=== PATIENT | female | born 1990 | race Caucasian/White ===

== ENCOUNTER 2019-12-25 14:40 | Emergency (ER) | payer OTHER ==
[~2019-12-25] VITALS: Ht 157.5 cm; Wt 73.2 kg
[2019-12-25 16:02] LABS: BASO # 0.1 x10^3/uL (0.0-0.2); BASO % 1 % (0-3); EOS # 0.5 x10^3/uL (0.0-0.7); EOS % 6 % (0-3); HEMATOCRIT 42.2 % (36.0-47.0); HEMOGLOBIN 14.5 g/dL (12.0-15.5); LYMPH # 2.4 x10^3/uL (1.0-4.8); LYMPH % 29 % (24-48); MEAN CORPUSCULAR HEMOGLOBIN 32 pg (25-35); MEAN CORPUSCULAR HGB CONC 35 g/dL (31-37); MEAN CORPUSCULAR VOLUME 94 fL (79-100); MONO # 0.6 x10^3/uL (0.0-1.1); MONO % 7 % (0-9); NEUT # 4.8 x10^3uL (1.8-7.7); NEUT % 57 % (31-73); PLATELET COUNT 282 x10^3/uL (140-400); RED CELL DISTRIBUTION WIDTH 12.8 % (11.5-14.5); WHITE BLOOD COUNT 8.3 x10^3/uL (4.0-11.0)
[2019-12-25 16:06] LABS: CALCIUM 9.3 mg/dL (8.5-10.1); CREATININE 0.8 mg/dL (0.6-1.0); GFR 85.4; POTASSIUM 3.7 mmol/L (3.5-5.1)
[2019-12-25 16:12] LABS: ALBUMIN 4.5 g/dL (3.4-5.0); ALBUMIN/GLOBULIN RATIO 1.3 (1.0-1.7); TOTAL BILIRUBIN 0.6 mg/dL (0.2-1.0)
[2019-12-25 16:25] LABS: BILIRUBIN,URINE NEG (NEG); CLARITY,URINE HAZY; COLOR,URINE YELLOW; GLUCOSE,URINE NEG (NEG)
[2019-12-25 16:26] LABS: BACTERIA,URINE FEW /HPF (0-FEW); NITRITE,URINE NEG (NEG); SQUAMOUS EPITHELIAL CELL,UR MANY /LPF; UROBILINOGEN,URINE 0.2 mg/dL (0.2 mg/dL)
--- NOTE | 2019-12-25 16:29 | RAD ---
INDICATION: Reason: right pelvic pain / Spl. Instructions: / History: COMPARISON: None. TECHNIQUE: Grayscale and color ultrasound images uterus and adnexa. Transabdominal and transvaginal images obtained. Transvaginal images were needed to better visualize structures that were limited on transabdominal imaging. FINDINGS: Uterus: 92 x 66 x 43 mm. Endometrial Stripe: 13 mm. Right Ovary: 48 x 41 x 23 mm. Left Ovary: 36 x 35 x 19 mm. Vascular flow identified to bilateral ovaries. Hypoechoic lesion of the right ovary measuring 22 x 11 mm. Adjacent to a portion of the uterus there is some hypoechoic material seen within the pelvis IMPRESSION: * Vascular flow seen to the bilateral ovaries with a hypoechoic lesion of the right ovary. This can be seen with causes such as hemorrhagic cyst with another possible cause including endometrioma. * Hypoechoic material seen within the pelvis. Difficult to tell if this is secondary to some loops of bowel within the area or if it is secondary to some complex fluid. Electronically signed by: Lee Capellan MD (12/25/2019 4:25 PM) [id number]
[2019-12-25 17:11] VITALS: BP 107/66
[2019-12-25] MEDS ORDERED: NITR100C62 PO (17:19)
--- NOTE | 2019-12-25 17:19 | PHYS DOC ---
Past History Past Medical History: UTI Past Surgical History: Appendectomy, Other Additional Past Surgical Histo: D&C; ABD CYST Alcohol Use: Occasionally Adult General Chief Complaint Chief Complaint: ABDOMINAL PAIN HPI HPI Patient is a 29-year-old female patient presenting to the ED today complaining of 5 out of 10 sharp intermittent right lower quadrant abdominal pain that began 1 week ago. Patient reports history of appendectomy. Denies any nausea, vo miting. Denies any fever. She states her last menstrual cycle was October 07, 2019 but she is done multiple tests which have been negative. States the pain is worse when she sits up. Review of Systems Review of Systems Constitutional: Denies fever or chills [] Eyes: Denies change in visual acuity, redness, or eye pain [] HENT: Denies nasal congestion or sore throat [] Respiratory: Denies cough or shortness of breath [] Cardiovascular: No additional information not addressed in HPI [] GI: Reports right lower quadrant abdominal pain, denies nausea, vomiting, bloody stools or diarrhea [] : Denies dysuria or hematuria [] Musculoskeletal: Denies back pain or joint pain [] Integument: Denies rash or skin lesions [] Neurologic: Denies headache, focal weakness or sensory changes [] All other systems were reviewed and found to be within normal limits, except as documented in this note. Allergies Allergies Allergies Coded Allergies Type Severity Reaction Last Updated Verified amoxicillin Allergy Unknown 12/25/19 Yes cefdinir Allergy Unknown 12/25/19 Yes Physical Exam Physical Exam Constitutional: Well developed, well nourished, no acute distress, non-toxic appearance. [] HENT: Normocephalic, atraumatic, bilateral external ears normal, oropharynx m oist, no oral exudates, nose normal. [] Eyes: PERRLA, EOMI, conjunctiva normal, no discharge. [] Neck: Normal range of motion, no tenderness, supple, no stridor. [] Cardiovascular:Heart rate regular rhythm, no murmur [] Lungs & Thorax: Bilateral breath sounds clear to auscultation [] Abdomen: Bowel sounds normal, soft, mild tenderness in the right lower quadrant, no right upper quadrant tenderness, no masses, no pulsatile masses. [] Pelvic exam External pelvic appears normal, cervix is visualized, closed, no CMT, trace amount of white discharge in the vaginal vault, mild right adnexal tenderness, no left adnexal tenderness. Skin: Warm, dry, no erythema, no rash. [] Back: No tenderness, no CVA tenderness. [] Extremities: No tenderness, no cyanosis, no clubbing, ROM intact, no edema. [] Neurologic: Alert and oriented X 3, normal motor function, normal sensory function, no focal deficits noted. [] Psychologic: Affect normal, judgement normal, mood normal. [] Current Patient Data Vital Signs Vital Signs Date Time Temp Pulse Resp B/P (MAP) Pulse Ox O2 Delivery O2 Flow Rate FiO2 12/25/19 17:11 77 18 107/66 (80) 99 Room Air 12/25/19 14:59 98.7 Lab Results Laboratory Tests Test 12/25/19 15:10 12/25/19 15:25 12/25/19 15:46 White Blood Count 8.3 x10^3/uL (4.0-11.0) Red Blood Count 4.50 x10^6/uL (3.50-5.40) Hemoglobin 14.5 g/dL (12.0-15.5) Hematocrit 42.2 % (36.0-47.0) Mean Corpuscular Volume 94 fL (79-100) Mean Corpuscular Hemoglobin 32 pg (25-35) Mean Corpuscular Hemoglobin Concent 35 g/dL (31-37) Red Cell Distribution Width 12.8 % (11.5-14.5) Platelet Count 282 x10^3/uL (140-400) Neutrophils (%) (Auto) 57 % (31-73) Lymphocytes (%) (Auto) 29 % (24-48) Monocytes (%) (Auto) 7 % (0-9) Eosinophils (%) (Auto) 6 % (0-3) H Basophils (%) (Auto) 1 % (0-3) Neutrophils # (Auto) 4.8 x10^3uL (1.8-7.7) Lymphocytes # (Auto) 2.4 x10^3/uL (1.0-4.8) Monocytes # (Auto) 0.6 x10^3/uL (0.0-1.1) Eosinophils # (Auto) 0.5 x10^3/uL (0.0-0.7) Basophils # (Auto) 0.1 x10^3/uL (0.0-0.2) Sodium Level 138 mmol/L (136-145) Potassium Level 3.7 mmol/L (3.5-5.1) Chloride Level 103 mmol/L (98-107) Carbon Dioxide Level 25 mmol/L (21-32) Anion Gap 10 (6-14) Blood Urea Nitrogen 8 mg/dL (7-20) Creatinine 0.8 mg/dL (0.6-1.0) Estimated GFR (Cockcroft-Gault) 85.4 BUN/Creatinine Ratio 10 (6-20) Glucose Level 92 mg/dL (70-99) Calcium Level 9.3 mg/dL (8.5-10.1) Total Bilirubin 0.6 mg/dL (0.2-1.0) Aspartate Amino Transferase (AST) 20 U/L (15-37) Alanine Aminotransferase (ALT) 32 U/L (14-59) Alkaline Phosphatase 67 U/L (46-116) Total Protein 8.0 g/dL (6.4-8.2) Albumin 4.5 g/dL (3.4-5.0) Albumin/Globulin Ratio 1.3 (1.0-1.7) Urine Collection Type Unknown Urine Color Yellow Urine Clarity Hazy Urine pH 7.0 Urine Specific [place] 1.015 Urine Protein Neg (NEG-TRACE) Urine Glucose (UA) Neg mg/dL (NEG) Urine Ketones (Stick) Neg mg/dL (NEG) Urine Blood Neg (NEG) Urine Nitrite Neg (NEG) Urine Bilirubin Neg (NEG) Urine Urobilinogen Dipstick 0.2 mg/dL (0.2 mg/dL) Urine Leukocyte Esterase Mod (NEG) Urine RBC 1-2 /HPF (0-2) Urine WBC 11-20 /HPF (0-4) Urine Squamous Epithelial Cells Many /LPF Urine Bacteria Few /HPF (0-FEW) POC Urine HCG, Qualitative hcg negative (Negative) Microbiology 12/25/19 Wet Prep - Final, Complete EKG EKG [] Radiology/Procedures Radiology/Procedures []PROCEDURE: US PELVIS W/TV INDICATION: Reason: right pelvic pain / Spl. Instructions: / History: COMPARISON: None. TECHNIQUE: Grayscale and color ultrasound images uterus and adnexa. Transabdominal and transvaginal images obtained. Transvaginal images were needed to better visualize structures that were limited on transabdominal imaging. FINDINGS: Uterus: 92 x 66 x 43 mm. Endometrial Stripe: 13 mm. Right Ovary: 48 x 41 x 23 mm. Left Ovary: 36 x 35 x 19 mm. Vascular flow identified to bilateral ovaries. Hypoechoic lesion of the right ovary measuring 22 x 11 mm. Adjacent to a portion of the uterus there is some hypoechoic material seen within the pelvis IMPRESSION: * Vascular flow seen to the bilateral ovaries with a hypoechoic lesion of the right ovary. This can be seen with causes such as hemorrhagic cyst with another possible cause including endometrioma. * Hypoechoic material seen within the pelvis. Difficult to tell if this is secondary to some loops of bowel within the area or if it is secondary to some complex fluid. Electronically signed by: Elinor Capellan MD (12/25/2019 4:25 PM) [id number] DICTATED AND SIGNED BY: ELINOR CAPELLAN MD DATE: 12/25/19 1625 CC: [facility]; SABINE SAINZ APRN; PCP,NO ~ Heart Score Risk Factors: Risk Factors: DM, Current or recent (<one month) smoker, HTN, HLP, family history of CAD, obesity. Risk Scores: Risk Factors: DM, Current or recent (<one month) smoker, HTN, HLP, family history of CAD, obesity. Course & Med Decision Making Course & Med Decision Making Pertinent Labs and Imaging studies reviewed. (See chart for details) This is a 29-year-old female patient presented to the ED today complaining of right lower quadrant abdominal pain that began a week ago. Negative urine hCG, CBC CMP with no acute findings. Positive for UTI, discharged on Macrobid. Wet prep is negative. Pelvic ultrasound noted for possible right hemorrhagic cyst. Discharged on ibuprofen and instructed to apply a heating pad to her lower abdomen. Recommended following up with an [employer] AL[employer] REPAIRER for her menstruation. Dragon Disclaimer Dragon Disclaimer This electronic medical record was generated, in whole or in part, using a voice recognition dictation system. Departure Departure: Impression: Primary Impression: Amenorrhea Additional Impressions: UTI (urinary tract infection) Hemorrhagic cyst of right ovary Disposition: 01 DC HOME SELF CARE/HOMELESS Condition: STABLE Referrals: PCP,NO (PCP) follow up with your OBGYN in 1-2 weeks Patient Instructions: Athletic Amenorrhea-SportsMed, Ovarian Cyst, [id number], Urinary Tract Infection Additional Instructions: You were evaluated in the emergency room and noted to have a right hemorrhagic cyst. Please apply a heating pad to your abdomen. Take ibuprofen 3 times a day as needed for pain. You have urinary tract infection, complete your antibiotics. Please follow-up with an FIRE ALARM REPAIRER for your menstrual cycles Scripts Nitrofurantoin Monohyd/M-Cryst (MACROBID 100 MG CAPSULE) 100 Mg Capsule 1 CAP PO BID for 7 Days, #14 CAP 0 Refills Prov: SABINE SAINZ APRN 12/25/19 Problem Qualifiers Additional Impressions: UTI (urinary tract infection) Urinary tract infection type: site unspecified Hematuria presence: without hematuria Qualified Codes: N39.0 - Urinary tract infection, site not specified SABINE SAINZ APRN Dec 25, 2019 17:19
[2019-12-28 22:07] LABS: CHLAMYDIA PROBE Negative (Negative)
== END 2019-12-25 17:25 | disposition home or self-care (01) ==
LOC: ER 14:40
DX: N39.0 Urinary tract infection, site not specified (principal); N91.2 Amenorrhea, unspecified; N83.201 Unspecified ovarian cyst, right side; Z90.89 Acquired absence of other organs; Z98.890 Other specified postprocedural states; Z88.0 Allergy status to penicillin; Z88.8 Allergy status to other drugs, medicaments and biological substances
CPT/HCPCS: 36415; 76830; 76856; 80053; 81001; 81025; 85025; 87491; 87591; 99284; Q0111

== ENCOUNTER → 2020-07-18 | Outpatient (CLI) | payer OTHER ==
[~2020-07-18] MED LIST: NITR100C62 PO
--- NOTE | 2020-07-18 14:57 | RAD ---
EXAM: Abdomen and pelvis CT without intravenous contrast. HISTORY: Recurrent urinary tract infections. Pelvic pain. TECHNIQUE: Computed tomographic images of the abdomen and pelvis were obtained without contrast. Mult iplanar reformatting was performed. *One or more of the following individualized dose reduction techniques were utilized for this examina tion: 1. Automated exposure control. 2. Adjustment of the mA and/or kV according to patient size. 3. Use of iterative reconstruction technique. COMPARISON: None. FINDINGS: Evaluation of the lower thorax demonstrates no infiltrate or pleural effusion. No hepatic l esion is seen on this noncontrast exam. The gallbladder, pancreas, spleen, adrenal glands and kidneys are unremarkable. The urinary bladder is unremarkable. There are multiple prominent bilateral ovaria n follicles and there is a small amount of pelvic free fluid. This is within physiologic limits for a premenopausal female. There are tiny pelvic phleboliths. The pancreas is absent. There is no bowel o bstruction or abnormal bowel wall thickening. The aorta is normal in caliber. There is no lymphadenop athy. IMPRESSION: No acute abdominal or pelvic finding. Electronically signed by: Ya Bowles MD (07/18/2020 2:54 PM) [id number]
== END ==
LOC: CT 14:04
PROVIDERS: ATTEND Obstetrics & Gynecology
DX: N39.0 Urinary tract infection, site not specified (principal); I87.8 Other specified disorders of veins; Z90.410 Acquired total absence of pancreas
CPT/HCPCS: 74176